=== PATIENT | female | born 1950 | race Caucasian/White ===

== ENCOUNTER 2017-08-14 22:50 | Inpatient (IN) | payer MEDICARE, MEDICAID ==
[~2017-08-14] VITALS: Ht 170.2 cm; Wt 93.5 kg
[2017-08-14] MEDS ORDERED: SODIUM CHLORIDE 0.9% 1,000 ML IV ONE (23:41)
[2017-08-14 23:47] LABS: HEMATOCRIT 33.8 % (34.6-47.8); HEMOGLOBIN 10.9 g/dL (11.7-16.4); WHITE BLOOD COUNT 6.5 x10^3/uL (3.4-10)
[2017-08-14 23:59] LABS: BLOOD UREA NITROGEN 14 mg/dL (7-18)
[2017-08-15] MEDS ORDERED: ONDANSETRON 2MG/ML, 2ML IVPush PRN
[2017-08-15] MEDS ORDERED: DOCUSATE 100 MG CAPSULE PO PRN (01:00)
[2017-08-15] MEDS ORDERED: morphine SULFATE 10 MG/ML, 1ML IVPush PRN (01:00)
[2017-08-15] MEDS ORDERED: ONDANSETRON ODT 4 MG PO PRN (01:00)
[2017-08-15] MEDS ORDERED: POTASSIUM CHLORIDE 20 MEQ TAB.ER.PRT PO ONE (01:00)
[2017-08-15] MEDS ORDERED: ENALAPRILAT 1.25 MG/ML, 2ML IVPush PRN (01:00)
[2017-08-15] MEDS ORDERED: ACETAMINOPHEN 325 MG TABLET ONE (01:30)
[2017-08-15] MEDS ORDERED: POTASSIUM CHLORIDE 20 MEQ TAB.ER.PRT ONE ×2 (01:30→08:36)
[2017-08-15] MEDS ORDERED: HEPARIN 5,000 UNITS/ML, 1ML ONE ×2 (01:30→08:52)
[2017-08-15] MEDS: ACETAMINOPHEN 325 MG TABLET PO PRN ×2 (01:33→16:01)
[2017-08-15] MEDS: HEPARIN 5,000 UNITS/ML, 1ML SQ SCH ×3 (01:34→17:25)
[2017-08-15] MEDS: TEMAZEPAM 15 MG CAPSULE PO PRN (03:38)
[2017-08-15] MEDS ORDERED: AMPICILLIN/SULBACTAM 3 GM IM SCH (04:00)
[2017-08-15] MEDS: AMPICILLIN/SULBACTAM 3 GM IV SCH ×2 (04:14→12:00)
[2017-08-15] MEDS: POTASSIUM CHLORIDE 20 MEQ TAB.ER.PRT PO SCH (08:40)
[2017-08-15 09:10] LABS: BLOOD UREA NITROGEN 10 mg/dL (7-18)
[2017-08-15] MEDS: AMPICILLIN/SULBACTAM 3 GM in SODIUM CHLORIDE 0.9% 100 ML IV SCH ×2 (13:26→20:24)
[2017-08-15 14:36] VITALS: BP 117/77
[2017-08-15 20:00] VITALS: BP 128/78
[2017-08-16 00:57] VITALS: BP 118/78
[2017-08-16] MEDS: HEPARIN 5,000 UNITS/ML, 1ML SQ SCH ×3 (01:18→16:47)
[2017-08-16] MEDS: AMPICILLIN/SULBACTAM 3 GM in SODIUM CHLORIDE 0.9% 100 ML IV SCH ×3 (04:00→19:30)
[2017-08-16] MEDS: ACETAMINOPHEN 325 MG TABLET PO PRN (04:00)
[2017-08-16 05:53] LABS: HEMATOCRIT 32.4 % (34.6-47.8); HEMOGLOBIN 10.4 g/dL (11.7-16.4); WHITE BLOOD COUNT 5.1 x10^3/uL (3.4-10)
[2017-08-16 06:23] LABS: BLOOD UREA NITROGEN 13 mg/dL (7-18); TOTAL IRON BINDING CAPACITY 292 mcg/dL (250-450)
[2017-08-16 07:42] VITALS: BP 135/83
[2017-08-16] MEDS: POTASSIUM CHLORIDE 20 MEQ TAB.ER.PRT PO SCH (10:44)
[2017-08-16] MEDS: FERROUS SULFATE 325 MG TABLET PO SCH ×2 (10:44→16:47)
[2017-08-16 13:33] VITALS: BP 106/68
[2017-08-16 18:50] VITALS: BP 111/74
[2017-08-16] MEDS: TEMAZEPAM 15 MG CAPSULE PO PRN (19:31)
[2017-08-17 01:27] VITALS: BP 116/76
[2017-08-17] MEDS: HEPARIN 5,000 UNITS/ML, 1ML SQ SCH ×3 (01:29→17:19)
[2017-08-17] MEDS: AMPICILLIN/SULBACTAM 3 GM in SODIUM CHLORIDE 0.9% 100 ML IV SCH ×3 (03:56→19:58)
[2017-08-17 06:13] LABS: BLOOD UREA NITROGEN 14 mg/dL (7-18)
[2017-08-17 07:03] VITALS: BP 133/87
[2017-08-17] MEDS: FERROUS SULFATE 325 MG TABLET PO SCH ×2 (08:23→17:19)
[2017-08-17] MEDS: POTASSIUM CHLORIDE 20 MEQ TAB.ER.PRT PO SCH (08:23)
[2017-08-17 13:09] VITALS: BP 129/78
[2017-08-17 18:21] VITALS: BP 109/71
[2017-08-18] MEDS: HEPARIN 5,000 UNITS/ML, 1ML SQ SCH ×3 (01:00→17:03)
[2017-08-18 01:52] VITALS: BP 112/75
[2017-08-18] MEDS: AMPICILLIN/SULBACTAM 3 GM in SODIUM CHLORIDE 0.9% 100 ML IV SCH ×3 (04:26→20:37)
[2017-08-18] MEDS: POTASSIUM CHLORIDE 20 MEQ TAB.ER.PRT PO SCH (08:29)
[2017-08-18] MEDS: FERROUS SULFATE 325 MG TABLET PO SCH ×2 (08:29→17:03)
[2017-08-18 08:37] VITALS: BP 113/75
[2017-08-18 13:14] VITALS: BP 95/61
[2017-08-18] MEDS ORDERED: ONDANSETRON ODT 4 MG PO PRN (15:30)
[2017-08-18] MEDS ORDERED: TEMAZEPAM 15 MG CAPSULE PO PRN (15:30)
[2017-08-18] MEDS ORDERED: ACETAMINOPHEN 325 MG TABLET PO PRN (15:30)
[2017-08-18] MEDS ORDERED: morphine SULFATE 10 MG/ML, 1ML IVPush PRN (15:30)
[2017-08-18] MEDS ORDERED: ENALAPRILAT 1.25 MG/ML, 2ML IVPush PRN (15:30)
[2017-08-18 20:00] VITALS: BP 107/61
[2017-08-19 02:00] VITALS: BP 100/67
[2017-08-19] MEDS: HEPARIN 5,000 UNITS/ML, 1ML SQ SCH ×3 (04:07→20:36)
[2017-08-19] MEDS: AMPICILLIN/SULBACTAM 3 GM in SODIUM CHLORIDE 0.9% 100 ML IV SCH (04:07)
[2017-08-19 07:30] VITALS: BP 121/84
[2017-08-19] MEDS: FERROUS SULFATE 325 MG TABLET PO SCH ×2 (08:18→16:18)
[2017-08-19] MEDS: POTASSIUM CHLORIDE 20 MEQ TAB.ER.PRT PO SCH (08:18)
[2017-08-19] MEDS: AMOXICILLIN/CLAV 875-125MG TABLET PO SCH ×2 (10:21→21:56)
[2017-08-19] MEDS ORDERED: PNEUMOCOCCAL 23 VACCINE IM-VACC ONE (11:30)
[2017-08-19] MEDS ORDERED: FLU VACC QS2017-18 (36MOS+) UP/PF 0.5 ML IM-VACC ONE (11:30)
[2017-08-19] MEDS: LACTOBACILLUS CHEW TABLET PO SCH ×3 (12:18→21:56)
[2017-08-19 15:42] VITALS: BP 94/60
[2017-08-19 20:05] VITALS: BP 113/73
[2017-08-20 01:22] VITALS: BP 110/70
[2017-08-20] MEDS: HEPARIN 5,000 UNITS/ML, 1ML SQ SCH ×3 (06:08→21:54)
[2017-08-20 08:03] VITALS: BP 106/71
[2017-08-20] MEDS: AMOXICILLIN/CLAV 875-125MG TABLET PO SCH ×2 (09:18→21:54)
[2017-08-20] MEDS: LACTOBACILLUS CHEW TABLET PO SCH ×3 (09:18→21:53)
[2017-08-20] MEDS: POTASSIUM CHLORIDE 20 MEQ TAB.ER.PRT PO SCH (09:18)
[2017-08-20] MEDS: FERROUS SULFATE 325 MG TABLET PO SCH ×2 (09:18→17:17)
[2017-08-20 13:57] VITALS: BP 109/71
[2017-08-20 19:06] VITALS: BP 103/67
[2017-08-21 02:55] VITALS: BP 117/79
[2017-08-21] MEDS: HEPARIN 5,000 UNITS/ML, 1ML SQ SCH ×3 (06:26→22:17)
[2017-08-21 07:48] VITALS: BP 104/64
[2017-08-21] MEDS ORDERED: ACID1TAB7 PO (08:19)
[2017-08-21] MEDS ORDERED: AMOX1TAB12 PO (08:19)
[2017-08-21] MEDS ORDERED: FERR-36 PO (08:19)
[2017-08-21] MEDS: LACTOBACILLUS CHEW TABLET PO SCH ×3 (08:26→22:17)
[2017-08-21] MEDS: FERROUS SULFATE 325 MG TABLET PO SCH ×2 (08:26→15:51)
[2017-08-21] MEDS: AMOXICILLIN/CLAV 875-125MG TABLET PO SCH ×2 (08:26→22:17)
[2017-08-21] MEDS: POTASSIUM CHLORIDE 20 MEQ TAB.ER.PRT PO SCH (08:26)
[2017-08-21 13:03] VITALS: BP 124/76
[2017-08-21] MEDS: ASCORBIC ACID 500 MG TABLET PO SCH (15:52)
[2017-08-21 20:56] VITALS: BP 97/66
[2017-08-22 00:56] VITALS: BP 102/62
[2017-08-22] MEDS: HEPARIN 5,000 UNITS/ML, 1ML SQ SCH ×3 (06:21→21:26)
[2017-08-22 07:09] VITALS: BP 103/68
[2017-08-22] MEDS: POTASSIUM CHLORIDE 20 MEQ TAB.ER.PRT PO SCH (09:24)
[2017-08-22] MEDS: AMOXICILLIN/CLAV 875-125MG TABLET PO SCH ×2 (09:24→21:26)
[2017-08-22] MEDS: LACTOBACILLUS CHEW TABLET PO SCH ×3 (09:24→21:27)
[2017-08-22] MEDS: FERROUS SULFATE 325 MG TABLET PO SCH ×2 (09:24→17:35)
[2017-08-22] MEDS: ASCORBIC ACID 500 MG TABLET PO SCH ×2 (12:45→17:36)
[2017-08-22 14:26] VITALS: BP 126/89
[2017-08-22 19:00] VITALS: BP 100/66
[2017-08-23 00:21] VITALS: BP 121/77
[2017-08-23] MEDS: HEPARIN 5,000 UNITS/ML, 1ML SQ SCH ×3 (06:24→23:55)
[2017-08-23 07:08] VITALS: BP 99/61
[2017-08-23] MEDS: ASCORBIC ACID 500 MG TABLET PO SCH ×2 (09:16→17:03)
[2017-08-23] MEDS: AMOXICILLIN/CLAV 875-125MG TABLET PO SCH ×2 (09:16→21:38)
[2017-08-23] MEDS: LACTOBACILLUS CHEW TABLET PO SCH ×3 (09:16→21:38)
[2017-08-23] MEDS: FERROUS SULFATE 325 MG TABLET PO SCH ×2 (09:16→17:03)
[2017-08-23] MEDS: POTASSIUM CHLORIDE 20 MEQ TAB.ER.PRT PO SCH (09:17)
[2017-08-23] MEDS: DOCUSATE 100 MG CAPSULE PO PRN (09:19)
[2017-08-23 14:10] VITALS: BP 132/81
[2017-08-23 18:43] VITALS: BP 111/73
[2017-08-24 00:50] VITALS: BP 116/78
[2017-08-24 07:00] VITALS: BP 117/76
[2017-08-24] MEDS: FERROUS SULFATE 325 MG TABLET PO SCH ×2 (08:27→16:03)
[2017-08-24] MEDS: LACTOBACILLUS CHEW TABLET PO SCH ×3 (08:27→20:53)
[2017-08-24] MEDS: HEPARIN 5,000 UNITS/ML, 1ML SQ SCH ×3 (08:27→23:18)
[2017-08-24] MEDS: AMOXICILLIN/CLAV 875-125MG TABLET PO SCH ×2 (08:27→20:53)
[2017-08-24] MEDS: ASCORBIC ACID 500 MG TABLET PO SCH ×2 (08:27→16:03)
[2017-08-24] MEDS: POTASSIUM CHLORIDE 20 MEQ TAB.ER.PRT PO SCH (08:28)
[2017-08-24 12:45] VITALS: BP 132/82
[2017-08-24] MEDS: DOCUSATE 100 MG CAPSULE PO PRN (16:02)
[2017-08-24 18:48] VITALS: BP 110/74
[2017-08-25 01:31] VITALS: BP 114/74
[2017-08-25 06:59] VITALS: BP 101/67
[2017-08-25] MEDS: FERROUS SULFATE 325 MG TABLET PO SCH ×2 (07:26→15:42)
[2017-08-25] MEDS: POTASSIUM CHLORIDE 20 MEQ TAB.ER.PRT PO SCH (07:26)
[2017-08-25] MEDS: HEPARIN 5,000 UNITS/ML, 1ML SQ SCH ×3 (07:26→20:41)
[2017-08-25] MEDS: LACTOBACILLUS CHEW TABLET PO SCH ×3 (07:26→20:40)
[2017-08-25] MEDS: ASCORBIC ACID 500 MG TABLET PO SCH ×2 (07:26→15:42)
[2017-08-25] MEDS: AMOXICILLIN/CLAV 875-125MG TABLET PO SCH ×2 (07:26→20:40)
[2017-08-25 14:25] VITALS: BP 120/80
[2017-08-25] MEDS ORDERED: ENALAPRILAT 1.25 MG/ML, 2ML IVPush PRN (16:30)
[2017-08-25] MEDS ORDERED: morphine SULFATE 10 MG/ML, 1ML IVPush PRN (16:30)
[2017-08-25] MEDS ORDERED: ACETAMINOPHEN 325 MG TABLET PO PRN (16:30)
[2017-08-25 20:07] VITALS: BP 101/68
[2017-08-26 02:23] VITALS: BP 135/82
[2017-08-26 07:48] VITALS: BP 110/72
[2017-08-26] MEDS: HEPARIN 5,000 UNITS/ML, 1ML SQ SCH ×3 (08:06→23:20)
[2017-08-26] MEDS: FERROUS SULFATE 325 MG TABLET PO SCH ×2 (08:08→17:10)
[2017-08-26] MEDS: POTASSIUM CHLORIDE 20 MEQ TAB.ER.PRT PO SCH (08:09)
[2017-08-26] MEDS: LACTOBACILLUS CHEW TABLET PO SCH ×3 (08:09→23:20)
[2017-08-26] MEDS: ASCORBIC ACID 500 MG TABLET PO SCH ×2 (08:09→17:10)
[2017-08-26] MEDS: AMOXICILLIN/CLAV 875-125MG TABLET PO SCH (08:09)
[2017-08-26 13:47] VITALS: BP 99/65
[2017-08-26] MEDS: AMPICILLIN/SULBACTAM 3 GM in SODIUM CHLORIDE 0.9% 100 ML IV SCH ×2 (17:25→23:20)
[2017-08-26 19:07] VITALS: BP 103/69
[2017-08-27 01:21] VITALS: BP 109/71
[2017-08-27] MEDS: AMPICILLIN/SULBACTAM 3 GM in SODIUM CHLORIDE 0.9% 100 ML IV SCH ×4 (05:34→23:10)
[2017-08-27] MEDS: HEPARIN 5,000 UNITS/ML, 1ML SQ SCH ×3 (07:30→23:10)
[2017-08-27 07:45] VITALS: BP 121/72
[2017-08-27] MEDS: FERROUS SULFATE 325 MG TABLET PO SCH ×2 (08:07→17:47)
[2017-08-27] MEDS: POTASSIUM CHLORIDE 20 MEQ TAB.ER.PRT PO SCH (08:07)
[2017-08-27] MEDS: LACTOBACILLUS CHEW TABLET PO SCH ×3 (08:07→20:38)
[2017-08-27] MEDS: ASCORBIC ACID 500 MG TABLET PO SCH ×2 (08:07→17:47)
[2017-08-27 13:42] VITALS: BP 104/68
[2017-08-27 19:29] VITALS: BP 99/65
[2017-08-28 01:31] VITALS: BP 108/73
[2017-08-28] MEDS: AMPICILLIN/SULBACTAM 3 GM in SODIUM CHLORIDE 0.9% 100 ML IV SCH ×4 (05:05→23:43)
[2017-08-28 07:04] VITALS: BP 122/84
[2017-08-28] MEDS: ASCORBIC ACID 500 MG TABLET PO SCH ×2 (09:02→17:40)
[2017-08-28] MEDS: POTASSIUM CHLORIDE 20 MEQ TAB.ER.PRT PO SCH (09:02)
[2017-08-28] MEDS: LACTOBACILLUS CHEW TABLET PO SCH ×3 (09:02→19:59)
[2017-08-28] MEDS: FERROUS SULFATE 325 MG TABLET PO SCH ×2 (09:02→17:39)
[2017-08-28] MEDS: HEPARIN 5,000 UNITS/ML, 1ML SQ SCH ×3 (09:03→23:43)
[2017-08-28 12:59] VITALS: BP 104/67
[2017-08-28 19:00] VITALS: BP 100/64
[2017-08-29 02:45] VITALS: BP 118/81
[2017-08-29] MEDS: AMPICILLIN/SULBACTAM 3 GM in SODIUM CHLORIDE 0.9% 100 ML IV SCH ×3 (05:07→18:28)
[2017-08-29] MEDS: HEPARIN 5,000 UNITS/ML, 1ML SQ SCH ×2 (08:25→16:14)
[2017-08-29] MEDS: POTASSIUM CHLORIDE 20 MEQ TAB.ER.PRT PO SCH (08:25)
[2017-08-29] MEDS: ASCORBIC ACID 500 MG TABLET PO SCH ×2 (08:25→16:14)
[2017-08-29] MEDS: FERROUS SULFATE 325 MG TABLET PO SCH ×2 (08:25→16:14)
[2017-08-29] MEDS: LACTOBACILLUS CHEW TABLET PO SCH ×3 (08:25→20:27)
[2017-08-29 09:11] VITALS: BP 117/81
[2017-08-29 13:57] VITALS: BP 118/76
[2017-08-29 19:21] VITALS: BP 113/73
[2017-08-29] MEDS: TEMAZEPAM 15 MG CAPSULE PO PRN (20:27)
[2017-08-30 02:40] VITALS: BP 108/74
[2017-08-30] MEDS: AMPICILLIN/SULBACTAM 3 GM in SODIUM CHLORIDE 0.9% 100 ML IV SCH ×4 (06:01→17:37)
[2017-08-30] MEDS: HEPARIN 5,000 UNITS/ML, 1ML SQ SCH ×3 (07:45→17:14)
[2017-08-30] MEDS: POTASSIUM CHLORIDE 20 MEQ TAB.ER.PRT PO SCH (07:45)
[2017-08-30] MEDS: LACTOBACILLUS CHEW TABLET PO SCH ×3 (07:45→21:37)
[2017-08-30] MEDS: ASCORBIC ACID 500 MG TABLET PO SCH ×2 (07:45→17:15)
[2017-08-30] MEDS: ERGOCALCIFEROL 50,000 UNIT CAPSULE PO SCH (07:45)
[2017-08-30] MEDS: MULTIVITAMIN 1 TABLET PO SCH (07:45)
[2017-08-30] MEDS: FERROUS SULFATE 325 MG TABLET PO SCH ×2 (07:45→17:14)
[2017-08-30 08:16] VITALS: BP 119/78
[2017-08-30 14:01] VITALS: BP 109/77
[2017-08-30 19:38] VITALS: BP 105/69
[2017-08-30] MEDS: AMOXICILLIN/CLAV 875-125MG TABLET PO SCH (21:37)
[2017-08-30] MEDS: ONDANSETRON ODT 4 MG PO PRN (21:41)
[2017-08-31 01:55] VITALS: BP 113/68
[2017-08-31 07:42] VITALS: BP 118/77
[2017-08-31] MEDS: FERROUS SULFATE 325 MG TABLET PO SCH ×2 (07:52→16:42)
[2017-08-31] MEDS: LACTOBACILLUS CHEW TABLET PO SCH ×3 (07:52→20:44)
[2017-08-31] MEDS: POTASSIUM CHLORIDE 20 MEQ TAB.ER.PRT PO SCH (07:52)
[2017-08-31] MEDS: HEPARIN 5,000 UNITS/ML, 1ML SQ SCH ×3 (07:52→16:43)
[2017-08-31] MEDS: MULTIVITAMIN 1 TABLET PO SCH (07:52)
[2017-08-31] MEDS: AMOXICILLIN/CLAV 875-125MG TABLET PO SCH ×2 (07:52→20:44)
[2017-08-31] MEDS: ASCORBIC ACID 500 MG TABLET PO SCH ×2 (07:52→16:42)
[2017-08-31 13:34] VITALS: BP 116/78
[2017-08-31 19:30] VITALS: BP 115/72
[2017-08-31] MEDS: TEMAZEPAM 15 MG CAPSULE PO PRN (20:44)
[2017-09-01] MEDS: HEPARIN 5,000 UNITS/ML, 1ML SQ SCH ×4 (00:03→20:17)
[2017-09-01 01:50] VITALS: BP 100/66
[2017-09-01 07:21] VITALS: BP 98/65
[2017-09-01] MEDS: LACTOBACILLUS CHEW TABLET PO SCH ×3 (07:24→22:00)
[2017-09-01] MEDS: AMOXICILLIN/CLAV 875-125MG TABLET PO SCH ×2 (07:24→22:00)
[2017-09-01] MEDS: FERROUS SULFATE 325 MG TABLET PO SCH ×2 (07:24→16:38)
[2017-09-01] MEDS: ASCORBIC ACID 500 MG TABLET PO SCH ×2 (07:24→16:38)
[2017-09-01] MEDS: MULTIVITAMIN 1 TABLET PO SCH (07:24)
[2017-09-01] MEDS: POTASSIUM CHLORIDE 20 MEQ TAB.ER.PRT PO SCH (07:24)
[2017-09-01 13:53] VITALS: BP 96/62
[2017-09-01 18:59] VITALS: BP 105/71
[2017-09-01] MEDS: ONDANSETRON ODT 4 MG PO PRN (20:16)
[2017-09-02 01:04] VITALS: BP 101/67
[2017-09-02 06:44] VITALS: BP 105/66
[2017-09-02] MEDS: FERROUS SULFATE 325 MG TABLET PO SCH ×2 (09:02→16:42)
[2017-09-02] MEDS: ASCORBIC ACID 500 MG TABLET PO SCH ×2 (09:02→16:42)
[2017-09-02] MEDS: POTASSIUM CHLORIDE 20 MEQ TAB.ER.PRT PO SCH (09:02)
[2017-09-02] MEDS: HEPARIN 5,000 UNITS/ML, 1ML SQ SCH ×2 (09:03→16:42)
[2017-09-02] MEDS: AMOXICILLIN/CLAV 875-125MG TABLET PO SCH ×2 (09:03→20:38)
[2017-09-02] MEDS: LACTOBACILLUS CHEW TABLET PO SCH ×3 (09:03→20:38)
[2017-09-02] MEDS: MULTIVITAMIN 1 TABLET PO SCH (09:03)
[2017-09-02 12:10] VITALS: BP 93/67
[2017-09-02 18:55] VITALS: BP 106/65
[2017-09-03 01:35] VITALS: BP 105/71
[2017-09-03] MEDS: HEPARIN 5,000 UNITS/ML, 1ML SQ SCH ×3 (03:05→19:00)
[2017-09-03 07:50] VITALS: BP 118/75
[2017-09-03] MEDS: MULTIVITAMIN 1 TABLET PO SCH (08:21)
[2017-09-03] MEDS: AMOXICILLIN/CLAV 875-125MG TABLET PO SCH ×2 (08:21→21:42)
[2017-09-03] MEDS: ASCORBIC ACID 500 MG TABLET PO SCH ×2 (08:21→16:45)
[2017-09-03] MEDS: LACTOBACILLUS CHEW TABLET PO SCH ×3 (08:21→21:42)
[2017-09-03] MEDS: POTASSIUM CHLORIDE 20 MEQ TAB.ER.PRT PO SCH (08:21)
[2017-09-03] MEDS: FERROUS SULFATE 325 MG TABLET PO SCH ×2 (08:21→16:45)
[2017-09-03 13:02] VITALS: BP 100/67
[2017-09-03 18:36] VITALS: BP 99/65
[2017-09-04 01:32] VITALS: BP 104/69
[2017-09-04] MEDS: HEPARIN 5,000 UNITS/ML, 1ML SQ SCH ×3 (03:00→19:22)
[2017-09-04] MEDS: MULTIVITAMIN 1 TABLET PO SCH (08:38)
[2017-09-04] MEDS: POTASSIUM CHLORIDE 20 MEQ TAB.ER.PRT PO SCH (08:38)
[2017-09-04] MEDS: AMOXICILLIN/CLAV 875-125MG TABLET PO SCH ×2 (08:38→20:42)
[2017-09-04] MEDS: LACTOBACILLUS CHEW TABLET PO SCH ×3 (08:38→20:43)
[2017-09-04] MEDS: FERROUS SULFATE 325 MG TABLET PO SCH ×2 (08:38→17:03)
[2017-09-04] MEDS: ASCORBIC ACID 500 MG TABLET PO SCH ×2 (08:38→17:03)
[2017-09-04 08:48] VITALS: BP 111/74
[2017-09-04 18:00] VITALS: BP 102/71
[2017-09-04 23:50] VITALS: BP 108/75
[2017-09-05] MEDS: HEPARIN 5,000 UNITS/ML, 1ML SQ SCH ×3 (03:00→21:14)
[2017-09-05 03:25] VITALS: BP 105/71
[2017-09-05 07:12] VITALS: BP 110/76
[2017-09-05] MEDS: FERROUS SULFATE 325 MG TABLET PO SCH ×2 (08:20→17:23)
[2017-09-05] MEDS: ASCORBIC ACID 500 MG TABLET PO SCH ×2 (08:20→17:22)
[2017-09-05] MEDS: AMOXICILLIN/CLAV 875-125MG TABLET PO SCH ×2 (08:20→21:14)
[2017-09-05] MEDS: POTASSIUM CHLORIDE 20 MEQ TAB.ER.PRT PO SCH (08:20)
[2017-09-05] MEDS: LACTOBACILLUS CHEW TABLET PO SCH ×3 (08:20→21:14)
[2017-09-05] MEDS: MULTIVITAMIN 1 TABLET PO SCH (08:20)
[2017-09-05 16:40] VITALS: BP 105/73
[2017-09-05 20:22] VITALS: BP_SYST 94; BP_SYST 96; BP_DIAS 62; BP_DIAS 63
[2017-09-06 02:00] VITALS: BP 109/76
[2017-09-06] MEDS: HEPARIN 5,000 UNITS/ML, 1ML SQ SCH ×3 (04:08→20:28)
[2017-09-06 05:34] LABS: HEMATOCRIT 36.9 % (34.6-47.8); HEMOGLOBIN 12.1 g/dL (11.7-16.4); WHITE BLOOD COUNT 6.2 x10^3/uL (3.4-10)
[2017-09-06 05:47] LABS: ASPARTATE AMINO TRANSFERASE 20 U/L (15-37); BLOOD UREA NITROGEN 21 mg/dL (7-18)
[2017-09-06 07:14] VITALS: BP 108/72
[2017-09-06] MEDS: FERROUS SULFATE 325 MG TABLET PO SCH ×2 (09:03→17:59)
[2017-09-06] MEDS: POTASSIUM CHLORIDE 20 MEQ TAB.ER.PRT PO SCH (09:03)
[2017-09-06] MEDS: LACTOBACILLUS CHEW TABLET PO SCH ×3 (09:04→20:28)
[2017-09-06] MEDS: ERGOCALCIFEROL 50,000 UNIT CAPSULE PO SCH (09:04)
[2017-09-06] MEDS: MULTIVITAMIN 1 TABLET PO SCH (09:04)
[2017-09-06] MEDS: AMOXICILLIN/CLAV 875-125MG TABLET PO SCH ×2 (09:04→20:28)
[2017-09-06] MEDS: ASCORBIC ACID 500 MG TABLET PO SCH ×2 (09:04→17:59)
[2017-09-06 13:37] VITALS: BP 104/67
[2017-09-06 18:59] VITALS: BP 106/70
[2017-09-07 00:37] VITALS: BP 114/74
[2017-09-07] MEDS: HEPARIN 5,000 UNITS/ML, 1ML SQ SCH ×3 (05:10→20:00)
[2017-09-07 08:12] VITALS: BP 100/67
[2017-09-07] MEDS: LACTOBACILLUS CHEW TABLET PO SCH ×3 (09:42→20:26)
[2017-09-07] MEDS: MULTIVITAMIN 1 TABLET PO SCH (09:42)
[2017-09-07] MEDS: ASCORBIC ACID 500 MG TABLET PO SCH ×2 (09:42→17:31)
[2017-09-07] MEDS: POTASSIUM CHLORIDE 20 MEQ TAB.ER.PRT PO SCH (09:42)
[2017-09-07] MEDS: AMOXICILLIN/CLAV 875-125MG TABLET PO SCH ×2 (09:42→20:26)
[2017-09-07] MEDS: FERROUS SULFATE 325 MG TABLET PO SCH ×2 (09:43→17:31)
[2017-09-07 14:51] VITALS: BP 107/70
[2017-09-07 18:36] VITALS: BP 125/84
[2017-09-08 02:24] VITALS: BP 106/69
[2017-09-08] MEDS: HEPARIN 5,000 UNITS/ML, 1ML SQ SCH ×3 (03:52→19:54)
[2017-09-08 07:46] VITALS: BP 96/64
[2017-09-08] MEDS: MULTIVITAMIN 1 TABLET PO SCH (08:33)
[2017-09-08] MEDS: AMOXICILLIN/CLAV 875-125MG TABLET PO SCH ×2 (08:33→19:54)
[2017-09-08] MEDS: LACTOBACILLUS CHEW TABLET PO SCH ×3 (08:33→19:54)
[2017-09-08] MEDS: ASCORBIC ACID 500 MG TABLET PO SCH ×2 (08:33→16:33)
[2017-09-08] MEDS: FERROUS SULFATE 325 MG TABLET PO SCH ×2 (08:33→16:33)
[2017-09-08] MEDS: POTASSIUM CHLORIDE 20 MEQ TAB.ER.PRT PO SCH (08:33)
[2017-09-08 13:13] VITALS: BP 136/79
[2017-09-08 19:37] VITALS: BP 102/70
[2017-09-08] MEDS ORDERED: morphine SULFATE 10 MG/ML, 1ML IVPush PRN (21:00)
[2017-09-08] MEDS ORDERED: ENALAPRILAT 1.25 MG/ML, 2ML IVPush PRN (21:00)
[2017-09-08] MEDS ORDERED: ACETAMINOPHEN 325 MG TABLET PO PRN (21:00)
[2017-09-09 01:26] VITALS: BP 122/83
[2017-09-09] MEDS: HEPARIN 5,000 UNITS/ML, 1ML SQ SCH ×3 (04:26→20:41)
[2017-09-09 07:37] VITALS: BP 108/72
[2017-09-09] MEDS: ASCORBIC ACID 500 MG TABLET PO SCH ×2 (09:34→16:51)
[2017-09-09] MEDS: FERROUS SULFATE 325 MG TABLET PO SCH ×2 (09:34→16:52)
[2017-09-09] MEDS: LACTOBACILLUS CHEW TABLET PO SCH ×3 (09:34→20:41)
[2017-09-09] MEDS: POTASSIUM CHLORIDE 20 MEQ TAB.ER.PRT PO SCH (09:34)
[2017-09-09] MEDS: AMOXICILLIN/CLAV 875-125MG TABLET PO SCH ×2 (09:34→20:41)
[2017-09-09] MEDS: MULTIVITAMIN 1 TABLET PO SCH (09:35)
[2017-09-09 13:21] VITALS: BP 112/75
[2017-09-09 19:45] VITALS: BP 106/67
[2017-09-10 01:33] VITALS: BP 112/74
[2017-09-10] MEDS: HEPARIN 5,000 UNITS/ML, 1ML SQ SCH ×3 (04:28→21:13)
[2017-09-10] MEDS: FERROUS SULFATE 325 MG TABLET PO SCH ×2 (07:41→17:28)
[2017-09-10] MEDS: POTASSIUM CHLORIDE 20 MEQ TAB.ER.PRT PO SCH (07:43)
[2017-09-10] MEDS: ASCORBIC ACID 500 MG TABLET PO SCH ×2 (07:43→17:28)
[2017-09-10] MEDS: AMOXICILLIN/CLAV 875-125MG TABLET PO SCH ×2 (07:43→21:12)
[2017-09-10] MEDS: LACTOBACILLUS CHEW TABLET PO SCH ×3 (07:43→21:12)
[2017-09-10] MEDS: MULTIVITAMIN 1 TABLET PO SCH (07:44)
[2017-09-10 07:54] VITALS: BP 103/72
[2017-09-10 13:41] VITALS: BP 106/71
[2017-09-10 19:26] VITALS: BP 108/72
[2017-09-11 02:05] VITALS: BP 116/79
[2017-09-11] MEDS: HEPARIN 5,000 UNITS/ML, 1ML SQ SCH ×3 (05:21→20:28)
[2017-09-11 08:00] VITALS: BP 110/74
[2017-09-11] MEDS: POTASSIUM CHLORIDE 20 MEQ TAB.ER.PRT PO SCH (09:02)
[2017-09-11] MEDS: ASCORBIC ACID 500 MG TABLET PO SCH ×2 (09:02→16:21)
[2017-09-11] MEDS: AMOXICILLIN/CLAV 875-125MG TABLET PO SCH ×2 (09:02→20:27)
[2017-09-11] MEDS: MULTIVITAMIN 1 TABLET PO SCH (09:02)
[2017-09-11] MEDS: FERROUS SULFATE 325 MG TABLET PO SCH ×2 (09:02→16:21)
[2017-09-11] MEDS: LACTOBACILLUS CHEW TABLET PO SCH ×3 (09:02→20:27)
[2017-09-11 12:50] VITALS: BP 105/68
[2017-09-11 14:00] VITALS: BP 100/62
[2017-09-11 19:15] VITALS: BP 105/72
[2017-09-12 02:07] VITALS: BP 104/70
[2017-09-12] MEDS: HEPARIN 5,000 UNITS/ML, 1ML SQ SCH ×3 (05:00→19:51)
[2017-09-12 07:35] VITALS: BP 109/77
[2017-09-12] MEDS: POTASSIUM CHLORIDE 20 MEQ TAB.ER.PRT PO SCH (08:00)
[2017-09-12] MEDS: AMOXICILLIN/CLAV 875-125MG TABLET PO SCH ×2 (08:33→19:51)
[2017-09-12] MEDS: ASCORBIC ACID 500 MG TABLET PO SCH ×2 (08:33→17:46)
[2017-09-12] MEDS: FERROUS SULFATE 325 MG TABLET PO SCH ×2 (08:33→17:46)
[2017-09-12] MEDS: LACTOBACILLUS CHEW TABLET PO SCH ×3 (08:33→19:51)
[2017-09-12] MEDS: MULTIVITAMIN 1 TABLET PO SCH (08:33)
[2017-09-12 14:11] VITALS: BP 99/65
[2017-09-12 19:34] VITALS: BP 119/82
[2017-09-12 23:59] VITALS: BP 112/74
[2017-09-13 04:06] VITALS: BP 113/76
[2017-09-13] MEDS: HEPARIN 5,000 UNITS/ML, 1ML SQ SCH ×3 (05:05→20:21)
[2017-09-13 07:24] VITALS: BP 105/70
[2017-09-13] MEDS: FERROUS SULFATE 325 MG TABLET PO SCH ×2 (08:26→17:55)
[2017-09-13] MEDS: AMOXICILLIN/CLAV 875-125MG TABLET PO SCH ×2 (08:26→20:21)
[2017-09-13] MEDS: ERGOCALCIFEROL 50,000 UNIT CAPSULE PO SCH (08:26)
[2017-09-13] MEDS: LACTOBACILLUS CHEW TABLET PO SCH ×3 (08:27→20:21)
[2017-09-13] MEDS: MULTIVITAMIN 1 TABLET PO SCH (08:27)
[2017-09-13] MEDS: POTASSIUM CHLORIDE 20 MEQ TAB.ER.PRT PO SCH (08:27)
[2017-09-13] MEDS: ASCORBIC ACID 500 MG TABLET PO SCH ×2 (08:27→17:55)
[2017-09-13 14:00] VITALS: BP 100/62
[2017-09-13 19:06] VITALS: BP 106/76
[2017-09-14 00:31] VITALS: BP 125/80
[2017-09-14] MEDS: HEPARIN 5,000 UNITS/ML, 1ML SQ SCH ×3 (05:15→22:02)
[2017-09-14 07:19] VITALS: BP 110/66
[2017-09-14] MEDS: LACTOBACILLUS CHEW TABLET PO SCH ×3 (09:09→22:01)
[2017-09-14] MEDS: MULTIVITAMIN 1 TABLET PO SCH (09:09)
[2017-09-14] MEDS: ASCORBIC ACID 500 MG TABLET PO SCH ×2 (09:09→17:34)
[2017-09-14] MEDS: FERROUS SULFATE 325 MG TABLET PO SCH ×2 (09:09→17:34)
[2017-09-14] MEDS: POTASSIUM CHLORIDE 20 MEQ TAB.ER.PRT PO SCH (09:10)
[2017-09-14] MEDS: AMOXICILLIN/CLAV 875-125MG TABLET PO SCH ×2 (09:10→22:02)
[2017-09-14 12:14] VITALS: BP 104/67
[2017-09-14 17:27] LABS: HEMATOCRIT 38.1 % (34.6-47.8); HEMOGLOBIN 12.6 g/dL (11.7-16.4); WHITE BLOOD COUNT 6.1 x10^3/uL (3.4-10)
[2017-09-14 22:13] VITALS: BP 108/77
[2017-09-15 04:04] VITALS: BP 110/76
[2017-09-15] MEDS: HEPARIN 5,000 UNITS/ML, 1ML SQ SCH ×3 (05:46→20:01)
[2017-09-15 06:12] LABS: BLOOD UREA NITROGEN 24 mg/dL (7-18)
[2017-09-15 07:11] VITALS: BP 103/66
[2017-09-15] MEDS: ASCORBIC ACID 500 MG TABLET PO SCH ×2 (07:53→16:06)
[2017-09-15] MEDS: AMOXICILLIN/CLAV 875-125MG TABLET PO SCH ×2 (07:53→20:01)
[2017-09-15] MEDS: POTASSIUM CHLORIDE 20 MEQ TAB.ER.PRT PO SCH (07:53)
[2017-09-15] MEDS: FERROUS SULFATE 325 MG TABLET PO SCH ×2 (07:53→16:06)
[2017-09-15] MEDS: MULTIVITAMIN 1 TABLET PO SCH (07:54)
[2017-09-15] MEDS: LACTOBACILLUS CHEW TABLET PO SCH ×3 (07:54→20:01)
[2017-09-15 14:13] VITALS: BP 101/68
[2017-09-15 19:30] VITALS: BP 101/65
[2017-09-16 01:30] VITALS: BP 119/80
[2017-09-16] MEDS: HEPARIN 5,000 UNITS/ML, 1ML SQ SCH ×3 (05:25→20:12)
[2017-09-16 07:04] VITALS: BP 106/73
[2017-09-16] MEDS: ASCORBIC ACID 500 MG TABLET PO SCH ×2 (07:29→16:20)
[2017-09-16] MEDS: MULTIVITAMIN 1 TABLET PO SCH (07:29)
[2017-09-16] MEDS: POTASSIUM CHLORIDE 20 MEQ TAB.ER.PRT PO SCH (07:29)
[2017-09-16] MEDS: FERROUS SULFATE 325 MG TABLET PO SCH ×2 (07:29→16:20)
[2017-09-16] MEDS: LACTOBACILLUS CHEW TABLET PO SCH ×3 (07:29→20:12)
[2017-09-16] MEDS: AMOXICILLIN/CLAV 875-125MG TABLET PO SCH ×2 (07:29→20:12)
[2017-09-16 13:30] VITALS: BP 93/61
[2017-09-16 19:44] VITALS: BP 102/66
[2017-09-17 02:22] VITALS: BP 111/74
[2017-09-17] MEDS: HEPARIN 5,000 UNITS/ML, 1ML SQ SCH ×2 (05:03→13:14)
[2017-09-17 05:06] LABS: HEMATOCRIT 36.6 % (34.6-47.8); HEMOGLOBIN 12.2 g/dL (11.7-16.4); WHITE BLOOD COUNT 5.2 x10^3/uL (3.4-10)
[2017-09-17 05:17] LABS: BLOOD UREA NITROGEN 23 mg/dL (7-18)
[2017-09-17 07:13] VITALS: BP 119/74
[2017-09-17] MEDS: POTASSIUM CHLORIDE 20 MEQ TAB.ER.PRT PO SCH (07:33)
[2017-09-17] MEDS: ASCORBIC ACID 500 MG TABLET PO SCH ×2 (07:33→16:12)
[2017-09-17] MEDS: FERROUS SULFATE 325 MG TABLET PO SCH ×2 (07:33→16:12)
[2017-09-17] MEDS: LACTOBACILLUS CHEW TABLET PO SCH ×2 (07:33→16:12)
[2017-09-17] MEDS: AMOXICILLIN/CLAV 875-125MG TABLET PO SCH (07:33)
[2017-09-17] MEDS: MULTIVITAMIN 1 TABLET PO SCH (07:33)
[2017-09-17 13:53] VITALS: BP 114/81
== END 2017-09-17 17:34 | DRG 602 ==
LOC: ED 23:53 → EDIP 23:59 → 3NE 08-15 12:01
PROVIDERS: ADMIT Hospitalist; ATTEND Family Medicine
PROC: 0HBRXZZ Excision of Toe Nail, External Approach (ICD-10-PCS; principal; 2017-08-20)
PROC: 0HBRXZZ Excision of Toe Nail, External Approach (ICD-10-PCS; 2017-08-20)
PROC: 0HBRXZZ Excision of Toe Nail, External Approach (ICD-10-PCS; 2017-08-20)
PROC: 0HBRXZZ Excision of Toe Nail, External Approach (ICD-10-PCS; 2017-08-20)
PROC: 0HBRXZZ Excision of Toe Nail, External Approach (ICD-10-PCS; 2017-08-20)
PROC: 0HBRXZZ Excision of Toe Nail, External Approach (ICD-10-PCS; 2017-08-20)
PROC: 0HBRXZZ Excision of Toe Nail, External Approach (ICD-10-PCS; 2017-08-20)
PROC: 0HBRXZZ Excision of Toe Nail, External Approach (ICD-10-PCS; 2017-08-20)
PROC: 0HBRXZZ Excision of Toe Nail, External Approach (ICD-10-PCS; 2017-08-20)
PROC: 0HBRXZZ Excision of Toe Nail, External Approach (ICD-10-PCS; 2017-08-20)
DX: L03.115 Cellulitis of right lower limb (principal); E43 Unspecified severe protein-calorie malnutrition; L97.929 Non-pressure chronic ulcer of unspecified part of left lower leg with unspecified severity; L60.2 Onychogryphosis; L03.116 Cellulitis of left lower limb; B35.1 Tinea unguium; E87.6 Hypokalemia; D50.9 Iron deficiency anemia, unspecified; I87.8 Other specified disorders of veins; L60.0 Ingrowing nail; Z79.899 Other long term (current) drug therapy; Z83.3 Family history of diabetes mellitus; Z68.32 Body mass index [BMI] 32.0-32.9, adult; Z79.1 Long term (current) use of non-steroidal anti-inflammatories (NSAID); Z79.2 Long term (current) use of antibiotics
CPT/HCPCS: 36415; 80048; 80053; 80061; 82040; 82306; 82607; 83036; 83540; 83550; 83605; 83735; 84145; 84443; 85025; 87040; 90686; 90732; 93970; 99285; J0295; J1644; Q0162; J2270; J7030